=== PATIENT | female | born 1945 | race Caucasian/White ===

== ENCOUNTER 2016-05-20 14:49 | Inpatient (IN) | payer OTHER ==
[~2016-05-20] VITALS: Ht 154.9 cm; Wt 83.7 kg
[~2016-05-20 14:49] MED LIST: ADVAIR 500/501 DISK IH; AMITRIPTYLINE H25 MG PO; BENTYL20 MG PO; COLACE100 MG PO; COLESTID1 GM PO; COMBIVENT RESPIM4 GM IH; FLEXERIL10 MG PO; HUMIRA40 MG/0.1 SC; KENALOG,ARISTOC15 G1 TP; LEXAPRO20 MG PO; LIPITOR10 MG PO; MIRALAX17 GM PO; NEXIUM40 MG PO; NORVASC5 MG PO; SINGULAIR10 MG PO; TYLENOL EXTRA500 MG PO; VITAMIN D PO
[2016-05-20 16:01] VITALS: BP 125/94
[2016-05-20 16:04] LABS: HEMATOCRIT 41.1 % (36.0-46.0); MCH 30.8 PG (29.0-34.0); MCHC 32.4 G/DL (30.0-36.0); MCV 95.1 FL (83-99); MEAN PLAT.VOLUME 11.3 uM^3 (9.5-12.4); PLATELET COUNT 242 K/uL (156-360); RBC DIS.WIDTH-CV 13.5 % (11.8-14.6); RBC DIS.WIDTH-SD 45.1 % (39-53); RED BLOOD COUNT 4.32 M/uL (3.80-5.20)
[2016-05-20 16:11] LABS: WHITE BLOOD COUNT 16.6 K/uL (4.1-10.2)
[2016-05-20 16:21] LABS: CHLORIDE 97 mEq/L (99-109); POTASSIUM 4.5 mEq/L (3.7-5.4); SODIUM 137 mEq/L (136-147)
[2016-05-20 16:23] LABS: GLUCOSE 143 mg/dL (70-99)
[2016-05-20 16:24] LABS: ANION GAP 16 MEQ/L (2-14)
[2016-05-20 16:26] LABS: ALKALINE PHOSPHATASE 246 IU/L (3-129)
[2016-05-20 16:27] LABS: GFR ESTIMATE (CALCULATED) > 59 mL/min/
[2016-05-20 16:28] LABS: UREA NITROGEN (BUN) 8 mg/dL (9-23)
[2016-05-20 16:30] LABS: LIPASE 8 U/L (1.0-51.0)
[2016-05-20 16:31] VITALS: BP 182/112
[2016-05-20] MEDS ORDERED: BUPROPION HCL150 M2 PO (18:42)
[2016-05-20] MEDS ORDERED: VITAMIN D2000 UNI1 PO (18:44)
[2016-05-20] MEDS ORDERED: FOSAMAX70 MG PO (18:46)
[2016-05-21 01:44] VITALS: BP 165/78
[2016-05-21 03:50] VITALS: BP 164/75
[2016-05-21 07:25] LABS: ANION GAP 8 MEQ/L (2-14); CHLORIDE 100 MEQ/L (99-109); GFR ESTIMATE (CALCULATED) > 59 mL/min/; GLUCOSE 119 mg/dL (70-99); SAMPLE HEMOLYSIS CHECK 0; SAMPLE ICTERIC CHECK 0; SAMPLE LIPEMIA CHECK 0; SODIUM 137 MEQ/L (136-147); UREA NITROGEN (BUN) 6 mg/dL (9-23)
[2016-05-21 07:27] LABS: POTASSIUM 3.4 MEQ/L (3.7-5.4)
[2016-05-21 07:30] LABS: EOSINOPHIL (%) 0.2 % (0-5); HEMATOCRIT 35.6 % (36.0-46.0); IMMATURE GRANULOCYTE (%) 0.2 % (0.0-0.7); LYMPHOCYTE COUNT 1.6 K/uL (1.0-2.8); MCH 31.6 PG (29.0-34.0); MCHC 32.9 G/DL (30.0-36.0); MCV 96.2 FL (83-99); MEAN PLAT.VOLUME 11.8 uM^3 (9.5-12.4); MONOCYTE (%) 9.1 % (3-12); NEUTROPHIL (%) 74.7 % (45-76); NEUTROPHIL COUNT 7.8 K/uL (1.8-6.4); PLATELET COUNT 195 K/uL (156-360); RBC DIS.WIDTH-CV 14.2 % (11.8-14.6); RBC DIS.WIDTH-SD 49.4 % (39-53)
[2016-05-21 07:34] LABS: WHITE BLOOD COUNT 10.4 K/uL (4.1-10.2)
[2016-05-21 07:35] VITALS: BP 122/59
[2016-05-21 12:10] VITALS: BP 120/60
== END 2016-05-21 15:42 | disposition short-term general hospital (02) | DRG 389 ==
LOC: EME 14:49 → EDOF 23:54 → 2EAST 23:54
PROVIDERS: Hospitalist
DX: K56.5 Intestinal adhesions [bands] with obstruction (postinfection) (principal); K50.90 Crohn's disease, unspecified, without complications; J44.9 Chronic obstructive pulmonary disease, unspecified; E66.01 Morbid (severe) obesity due to excess calories; I10 Essential (primary) hypertension; E78.5 Hyperlipidemia, unspecified; F41.9 Anxiety disorder, unspecified; F32.9 Major depressive disorder, single episode, unspecified; Z86.2 Personal history of diseases of the blood and blood-forming organs and certain disorders involving the immune mechanism; Z79.899 Other long term (current) drug therapy; Z90.49 Acquired absence of other specified parts of digestive tract; K43.9 Ventral hernia without obstruction or gangrene; J45.909 Unspecified asthma, uncomplicated; K21.9 Gastro-esophageal reflux disease without esophagitis; M81.0 Age-related osteoporosis without current pathological fracture; Z68.34 Body mass index [BMI] 34.0-34.9, adult
CPT/HCPCS: 74020; 74177; 80048; 80053; 81003; 83605; 83690; 85025; 85027; 99281; 99285; C9113; J1170; J1644; J2270; J2405; J2920; J3010; J7030

== ENCOUNTER 2016-12-14 19:06 | Inpatient (IN) | payer OTHER ==
[~2016-12-14] VITALS: Ht 154.9 cm; Wt 79.5 kg
[~2016-12-14 19:06] MED LIST changes: +BUPROPION HCL150 M2 PO; +FOSAMAX70 MG PO; +VITAMIN D2000 UNI1 PO
[2016-12-14 20:00] LABS: EOSINOPHIL (%) 0.1 % (0-5); HEMATOCRIT 39.7 % (36.0-46.0); IMMATURE GRANULOCYTE (%) 0.4 % (0.0-0.7); IMMATURE GRANULOCYTE COUNT 0.1 K/uL; INSTRUMENT ABS NEUTROPHIL CT 10.3 K/uL; LYMPHOCYTE COUNT 1.5 K/uL (1.0-2.8); MCH 31.1 PG (29.0-34.0); MCHC 32.7 G/DL (30.0-36.0); MEAN PLAT.VOLUME 11.7 uM^3 (9.5-12.4); MONOCYTE (%) 7.2 % (3-12); MONOCYTE COUNT 0.9 K/uL (0-0.8); NEUTROPHIL (%) 80.2 % (45-76); NEUTROPHIL COUNT 10.3 K/uL (1.8-6.4); PLATELET COUNT 191 K/uL (156-360); RBC DIS.WIDTH-CV 12.8 % (11.8-14.6); RBC DIS.WIDTH-SD 44.4 % (39-53); RED BLOOD COUNT 4.18 M/uL (3.80-5.20); WHITE BLOOD COUNT 12.8 K/uL (4.1-10.2)
[2016-12-14 20:06] LABS: CHLORIDE 95 mEq/L (99-109); POTASSIUM 3.6 mEq/L (3.7-5.4); SODIUM 132 mEq/L (136-147)
[2016-12-14 20:08] LABS: GLUCOSE 108 mg/dL (70-99)
[2016-12-14 20:10] LABS: ANION GAP 10 MEQ/L (2-14); TOTAL BILIRUBIN 1.2 mg/dL (0.0-1.0)
[2016-12-14 20:12] LABS: ALKALINE PHOSPHATASE 312 IU/L (3-129); GFR ESTIMATE (CALCULATED) > 59 mL/min/
[2016-12-14 20:13] LABS: UREA NITROGEN (BUN) 5 mg/dL (9-23)
[2016-12-14 20:15] LABS: LIPASE 6 U/L (1.0-51.0)
[2016-12-14] MEDS ORDERED: NEXIUM40 MG PO (21:28)
[2016-12-14] MEDS ORDERED: PREDNISONE5 MG PO (21:29)
[2016-12-15 00:42] VITALS: BP 126/60
[2016-12-15 03:44] LABS: ADD MIUA? YES; BILIRUBIN NEGATIVE; BLOOD SMALL; COLOR YELLOW ((YELLOW)); GLUCOSE (STRIP) NEGATIVE; KETONES NEGATIVE; LEUKOCYTES NEGATIVE; NITRITE NEGATIVE; PROTEIN (STRIP) NEGATIVE
[2016-12-15 03:45] LABS: BACTERIA NONE SEEN /HPF; EPITHELIAL CELLS RARE /HPF; MUCUS NONE SEEN /LPF; RED BLOOD CELLS 0-5 /HPF (0-5); UCUL ADDED? NO; WHITE BLOOD CELLS 0-5 /HPF (0-5)
[2016-12-15 04:03] LABS: SPECIFIC GRAVITY 1.071 (1.000-1.030)
[2016-12-15 04:22] VITALS: BP 114/57
[2016-12-15 07:25] VITALS: BP 108/66
[2016-12-15 09:43] LABS: ANION GAP 8 MEQ/L (2-14); CHLORIDE 100 MEQ/L (99-109); GFR ESTIMATE (CALCULATED) > 59 mL/min/; POTASSIUM 3.8 MEQ/L (3.7-5.4); SAMPLE HEMOLYSIS CHECK 0; SAMPLE ICTERIC CHECK 0; SAMPLE LIPEMIA CHECK 0; SODIUM 138 MEQ/L (136-147); UREA NITROGEN (BUN) 5 mg/dL (9-23)
[2016-12-15 09:52] LABS: GLUCOSE 168 mg/dL (70-99)
[2016-12-15 10:16] LABS: HEMATOCRIT 34.8 % (36.0-46.0); MCH 30.9 PG (29.0-34.0); MCHC 31.3 G/DL (30.0-36.0); MCV 98.6 FL (83-99); RBC DIS.WIDTH-SD 46.5 % (39-53); RED BLOOD COUNT 3.53 M/uL (3.80-5.20); WHITE BLOOD COUNT 6.1 K/uL (4.1-10.2)
[2016-12-15 10:46] LABS: MEAN PLAT.VOLUME 12.4 uM^3 (9.5-12.4); PLAT.SUFFICIENCY DECREASED
[2016-12-15 10:48] LABS: PLATELET COUNT 130 K/uL (156-360)
[2016-12-15 11:26] VITALS: BP 91/46
[2016-12-15 15:26] VITALS: BP 114/69
[2016-12-15 19:36] VITALS: BP 115/62
[2016-12-16 00:20] VITALS: BP 131/67
[2016-12-16 04:35] VITALS: BP 113/89
[2016-12-16 06:09] LABS: EOSINOPHIL (%) 0 % (0-5); HEMATOCRIT 30.5 % (36.0-46.0); IMMATURE GRANULOCYTE (%) 0.6 % (0.0-0.7); INSTRUMENT ABS NEUTROPHIL CT 4.3 K/uL; LYMPHOCYTE COUNT 0.4 K/uL (1.0-2.8); MCH 32.3 PG (29.0-34.0); MCHC 32.8 G/DL (30.0-36.0); MCV 98.4 FL (83-99); MEAN PLAT.VOLUME 12.6 uM^3 (9.5-12.4); MONOCYTE (%) 2.5 % (3-12); MONOCYTE COUNT 0.1 K/uL (0-0.8); NEUTROPHIL (%) 87.9 % (45-76); NEUTROPHIL COUNT 4.3 K/uL (1.8-6.4); PLATELET COUNT 110 K/uL (156-360); RBC DIS.WIDTH-CV 12.9 % (11.8-14.6); RBC DIS.WIDTH-SD 46.5 % (39-53); WHITE BLOOD COUNT 4.9 K/uL (4.1-10.2)
[2016-12-16 06:34] LABS: ALKALINE PHOSPHATASE 173 IU/L (3-129); ANION GAP 8 MEQ/L (2-14); CHLORIDE 103 MEQ/L (99-109); GFR ESTIMATE (CALCULATED) > 59 mL/min/; GLUCOSE 148 mg/dL (70-99); POTASSIUM 3.4 MEQ/L (3.7-5.4); SAMPLE HEMOLYSIS CHECK 0; SAMPLE ICTERIC CHECK 0; SAMPLE LIPEMIA CHECK 0; SODIUM 139 MEQ/L (136-147); TOTAL BILIRUBIN 0.6 MG/DL (0.0-1.0); UREA NITROGEN (BUN) 4 mg/dL (9-23)
[2016-12-16 06:50] VITALS: BP 124/64
[2016-12-16 15:23] VITALS: BP 165/77
[2016-12-16 15:30] VITALS: BP 120/58
[2016-12-16 23:15] VITALS: BP 134/65
[2016-12-17 06:12] LABS: ANION GAP 6 MEQ/L (2-14); CHLORIDE 104 MEQ/L (99-109); GFR ESTIMATE (CALCULATED) > 59 mL/min/; GLUCOSE 162 mg/dL (70-99); POTASSIUM 3.7 MEQ/L (3.7-5.4); SAMPLE HEMOLYSIS CHECK 0; SAMPLE ICTERIC CHECK 0; SAMPLE LIPEMIA CHECK 0; SODIUM 140 MEQ/L (136-147); UREA NITROGEN (BUN) 4 mg/dL (9-23)
[2016-12-17 07:00] VITALS: BP 125/92
[2016-12-17] MEDS ORDERED: FLAGYL500 MG PO (14:18)
[2016-12-17] MEDS ORDERED: CIPRO500 MG PO (14:18)
== END 2016-12-17 15:32 | disposition home or self-care (01) | DRG 386 ==
LOC: EME 19:06 → EDOF 23:08 → 2EAST 23:08 → ENRESERV 23:10 → 2EAST 12-15 00:26
PROVIDERS: Emergency Medicine; Hospitalist
DX: K50.912 Crohn's disease, unspecified, with intestinal obstruction (principal); K56.51 Intestinal adhesions [bands], with partial obstruction; J44.9 Chronic obstructive pulmonary disease, unspecified; I10 Essential (primary) hypertension; E78.5 Hyperlipidemia, unspecified; K21.9 Gastro-esophageal reflux disease without esophagitis; M06.9 Rheumatoid arthritis, unspecified; F32.9 Major depressive disorder, single episode, unspecified; F41.9 Anxiety disorder, unspecified; M81.0 Age-related osteoporosis without current pathological fracture; E66.9 Obesity, unspecified; Z68.33 Body mass index [BMI] 33.0-33.9, adult; Z90.49 Acquired absence of other specified parts of digestive tract; Z79.83 Long term (current) use of bisphosphonates; Z86.73 Personal history of transient ischemic attack (TIA), and cerebral infarction without residual deficits
CPT/HCPCS: 74000; 74177; 80048; 80053; 81003; 83690; 85025; 85027; 87177; 87329; 87493; 94640; 94640 76; 94799; 99202; 99281; 99285; J0744; J1170; J1644; J2270; J2405; J2920; J3480; J7030; S0028; S0030

== ENCOUNTER 2017-06-24 07:59 | Inpatient (IN) | payer OTHER ==
[~2017-06-24] VITALS: Ht 157.5 cm; Wt 77.3 kg
[~2017-06-24 07:59] MED LIST changes: +CIPRO500 MG PO; +FLAGYL500 MG PO; +PREDNISONE5 MG PO
[2017-06-24 08:52] LABS: BASOPHIL (%) 0.1 % (0-1); EOSINOPHIL (%) 0.1 % (0-5); HEMATOCRIT 38.2 % (36.0-46.0); HEMOGLOBIN 12.8 G/DL (11.9-15.5); IMMATURE GRANULOCYTE (%) 0.2 % (0.0-0.7); LYMPHOCYTE (%) 13.7 % (15-42); LYMPHOCYTE COUNT 1.2 K/uL (1.0-2.8); MCH 32.1 PG (29.0-34.0); MCHC 33.5 G/DL (30.0-36.0); MCV 95.7 FL (83-99); MONOCYTE (%) 7.3 % (3-12); MONOCYTE COUNT 0.7 K/uL (0-0.8); NEUTROPHIL (%) 78.6 % (45-76); NEUTROPHIL COUNT 7.1 K/uL (1.8-6.4); PLATELET COUNT 173 K/uL (156-360); RBC DIS.WIDTH-CV 12.7 % (11.8-14.6); RED BLOOD COUNT 3.99 M/uL (3.80-5.20)
[2017-06-24 08:56] LABS: ALBUMIN 3.9 g/dL (3.2-4.8)
[2017-06-24 08:57] LABS: CHLORIDE 97 mEq/L (99-109); INTER. NORMALIZED RATIO 1.2; POTASSIUM 3.1 mEq/L (3.7-5.4); SODIUM 140 mEq/L (136-147)
[2017-06-24 08:59] LABS: GLUCOSE 138 mg/dL (70-99); TOTAL PROTEIN 7.4 g/dL (6.4-8.3)
[2017-06-24 09:01] LABS: TOTAL BILIRUBIN 0.9 mg/dL (0.0-1.0)
[2017-06-24 09:02] LABS: ALKALINE PHOSPHATASE 208 IU/L (3-129)
[2017-06-24 09:03] LABS: CREATININE 0.7 mg/dL (0.6-1.3); GFR ESTIMATE (CALCULATED) > 59 mL/min/
[2017-06-24 09:04] LABS: AST (GOT) 58 IU/L (2-34); UREA NITROGEN (BUN) 5 mg/dL (9-23)
[2017-06-24 09:06] LABS: ALT (GPT) 37 IU/L (3-49); LIPASE 8 U/L (1.0-51.0)
[2017-06-24 09:46] LABS: APPEARANCE CLEAR ((CLEAR)); BILIRUBIN NEGATIVE; BLOOD NEGATIVE; COLOR YELLOW ((YELLOW)); GLUCOSE (STRIP) NEGATIVE; KETONES NEGATIVE; LEUKOCYTES NEGATIVE; NITRITE NEGATIVE; PROTEIN (STRIP) NEGATIVE; SPECIFIC GRAVITY 1.019 (1.000-1.030)
[2017-06-24] MEDS ORDERED: TYLENOL ARTHRI650 MG PO (12:10)
[2017-06-24] MEDS ORDERED: VITAMIN E100 UNIT PO (12:18)
[2017-06-24 15:51] VITALS: BP 131/67
[2017-06-24 16:58] VITALS: BP 138/70
[2017-06-24 16:59] VITALS: BP 164/88
[2017-06-24 19:54] VITALS: BP 134/63
[2017-06-25 00:03] VITALS: BP 109/55
[2017-06-25 04:09] VITALS: BP 156/79
[2017-06-25 06:45] VITALS: BP 133/69
[2017-06-25 06:53] LABS: HEMATOCRIT 33.2 % (36.0-46.0); HEMOGLOBIN 10.7 G/DL (11.9-15.5); MCH 31.8 PG (29.0-34.0); MCHC 32.2 G/DL (30.0-36.0); MCV 98.5 FL (83-99); PLATELET COUNT 136 K/uL (156-360); RBC DIS.WIDTH-CV 13.2 % (11.8-14.6); RBC DIS.WIDTH-SD 47.6 % (39-53); RED BLOOD COUNT 3.37 M/uL (3.80-5.20); WHITE BLOOD COUNT 5.8 K/uL (4.1-10.2)
[2017-06-25 06:59] LABS: CHLORIDE 102 MEQ/L (99-109); CREATININE 0.5 MG/DL (0.6-1.3); GFR ESTIMATE (CALCULATED) > 59 mL/min/; GLUCOSE 112 mg/dL (70-99); POTASSIUM 3.2 MEQ/L (3.7-5.4); SODIUM 139 MEQ/L (136-147); UREA NITROGEN (BUN) 4 mg/dL (9-23)
[2017-06-25 15:00] VITALS: BP 160/70
[2017-06-25 19:21] VITALS: BP 138/71
[2017-06-26] VITALS (7 sets, daily range): BP systolic 121–161; BP diastolic 59–84
[2017-06-26 06:14] LABS: HEMATOCRIT 34.7 % (36.0-46.0); HEMOGLOBIN 11.2 G/DL (11.9-15.5); MCH 31.7 PG (29.0-34.0); MCHC 32.3 G/DL (30.0-36.0); MCV 98.3 FL (83-99); PLATELET COUNT 121 K/uL (156-360); RBC DIS.WIDTH-CV 13.1 % (11.8-14.6); RBC DIS.WIDTH-SD 46.9 % (39-53); RED BLOOD COUNT 3.53 M/uL (3.80-5.20); WHITE BLOOD COUNT 2.9 K/uL (4.1-10.2)
[2017-06-26 07:12] LABS: CHLORIDE 103 MEQ/L (99-109); CREATININE 0.4 MG/DL (0.6-1.3); GFR ESTIMATE (CALCULATED) > 59 mL/min/; MAGNESIUM 1.2 mg/dl (1.3-2.7); SODIUM 140 MEQ/L (136-147); UREA NITROGEN (BUN) 3 mg/dL (9-23)
[2017-06-26 07:17] LABS: GLUCOSE 175 mg/dL (70-99); POTASSIUM 4.6 MEQ/L (3.7-5.4)
[2017-06-27 06:14] LABS: HEMATOCRIT 34.4 % (36.0-46.0); MCH 31.5 PG (29.0-34.0); MCV 98.6 FL (83-99); PLATELET COUNT 131 K/uL (156-360); RBC DIS.WIDTH-CV 12.9 % (11.8-14.6); RBC DIS.WIDTH-SD 46.1 % (39-53); RED BLOOD COUNT 3.49 M/uL (3.80-5.20); WHITE BLOOD COUNT 3.5 K/uL (4.1-10.2)
[2017-06-27 06:40] LABS: CHLORIDE 108 MEQ/L (99-109); CREATININE 0.3 MG/DL (0.6-1.3); GFR ESTIMATE (CALCULATED) > 59 mL/min/; GLUCOSE 183 mg/dL (70-99); POTASSIUM 3.7 MEQ/L (3.7-5.4); SODIUM 142 MEQ/L (136-147); UREA NITROGEN (BUN) 2 mg/dL (9-23)
[2017-06-27 07:30] VITALS: BP 141/74
[2017-06-27 15:42] VITALS: BP 124/98
[2017-06-28 00:42] VITALS: BP 157/65; BP 162/90
[2017-06-28 06:20] LABS: HEMATOCRIT 34.2 % (36.0-46.0); MCH 31.6 PG (29.0-34.0); MCHC 32.2 G/DL (30.0-36.0); MCV 98.3 FL (83-99); PLATELET COUNT 135 K/uL (156-360); RBC DIS.WIDTH-CV 13.2 % (11.8-14.6); RBC DIS.WIDTH-SD 46.9 % (39-53); RED BLOOD COUNT 3.48 M/uL (3.80-5.20); WHITE BLOOD COUNT 3.7 K/uL (4.1-10.2)
[2017-06-28 06:36] LABS: CHLORIDE 107 MEQ/L (99-109); CREATININE 0.3 MG/DL (0.6-1.3); GFR ESTIMATE (CALCULATED) > 59 mL/min/; GLUCOSE 174 mg/dL (70-99); POTASSIUM 3.5 MEQ/L (3.7-5.4); SODIUM 142 MEQ/L (136-147); UREA NITROGEN (BUN) 3 mg/dL (9-23)
[2017-06-28 08:38] VITALS: BP 158/73
[2017-06-28] MEDS ORDERED: PREDNISONE10 MG PO (09:20)
== END 2017-06-28 11:24 | disposition home or self-care (01) | DRG 389 ==
LOC: EME 07:59 → EDOF 12:27 → 5EAST 12:27 → ENRESERV 12:28 → 5EAST 16:40
PROVIDERS: Emergency Medicine; Internal Medicine; Physician Assistant
DX: K56.600 Partial intestinal obstruction, unspecified as to cause (principal); K50.012 Crohn's disease of small intestine with intestinal obstruction; E87.6 Hypokalemia; D46.9 Myelodysplastic syndrome, unspecified; E83.42 Hypomagnesemia; I10 Essential (primary) hypertension; E78.5 Hyperlipidemia, unspecified; K21.9 Gastro-esophageal reflux disease without esophagitis; M81.0 Age-related osteoporosis without current pathological fracture; Z86.73 Personal history of transient ischemic attack (TIA), and cerebral infarction without residual deficits; Z90.49 Acquired absence of other specified parts of digestive tract; Z90.710 Acquired absence of both cervix and uterus
CPT/HCPCS: 74018; 74019; 74021; 74177; 80048; 80053; 81003; 83690; 83735; 85025; 85027; 85610; 94640; 94640 76; 99202; 99281; 99284; J0135; J1650; J2405; J2920; J3010; J3475; J3480; J7030; J7512

== ENCOUNTER 2017-09-18 08:29 | Emergency (ER) | payer OTHER ==
[~2017-09-18] VITALS: Ht 154.9 cm; Wt 76.9 kg
[~2017-09-18 08:29] MED LIST changes: +PREDNISONE10 MG PO; +TYLENOL ARTHRI650 MG PO; +VITAMIN E100 UNIT PO
[2017-09-18] MEDS ORDERED: NORCO 5/3251 TABLET PO (09:55)
[2017-09-18 10:50] VITALS: BP 143/81
== END 2017-09-18 10:55 | disposition home or self-care (01) ==
LOC: EME 08:29
DX: S42.215A Unspecified nondisplaced fracture of surgical neck of left humerus, initial encounter for closed fracture (principal); W01.0XXA Fall on same level from slipping, tripping and stumbling without subsequent striking against object, initial encounter; E78.5 Hyperlipidemia, unspecified; F32.9 Major depressive disorder, single episode, unspecified; F41.9 Anxiety disorder, unspecified; I10 Essential (primary) hypertension; J43.9 Emphysema, unspecified; K21.9 Gastro-esophageal reflux disease without esophagitis; K50.90 Crohn's disease, unspecified, without complications; Z88.1 Allergy status to other antibiotic agents; Z88.5 Allergy status to narcotic agent; Z88.6 Allergy status to analgesic agent
CPT/HCPCS: 73030; 73060; 73080; 99281; 99284

== ENCOUNTER 2017-10-04 16:57 | Observation (INO) | payer OTHER ==
[~2017-10-04] VITALS: Ht 154.9 cm; Wt 75.0 kg
[~2017-10-04 16:57] MED LIST changes: +NORCO 5/3251 TABLET PO
[2017-10-04 17:52] LABS: BASOPHIL (%) 0.2 % (0-1); EOSINOPHIL (%) 0.1 % (0-5); HEMATOCRIT 35.8 % (36.0-46.0); HEMOGLOBIN 12.1 G/DL (11.9-15.5); IMMATURE GRANULOCYTE (%) 0.4 % (0.0-0.7); LYMPHOCYTE (%) 26.6 % (15-42); LYMPHOCYTE COUNT 2.3 K/uL (1.0-2.8); MCH 30.6 PG (29.0-34.0); MCHC 33.8 G/DL (30.0-36.0); MCV 90.6 FL (83-99); MONOCYTE (%) 8.7 % (3-12); MONOCYTE COUNT 0.7 K/uL (0-0.8); NEUTROPHIL COUNT 5.5 K/uL (1.8-6.4); PLATELET COUNT 288 K/uL (156-360); RBC DIS.WIDTH-CV 13.3 % (11.8-14.6); RBC DIS.WIDTH-SD 43.9 % (39-53); RED BLOOD COUNT 3.95 M/uL (3.80-5.20); WHITE BLOOD COUNT 8.5 K/uL (4.1-10.2)
[2017-10-04 18:06] LABS: CHLORIDE 94 mEq/L (99-109); POTASSIUM 3.3 mEq/L (3.7-5.4); SODIUM 129 mEq/L (136-147)
[2017-10-04 18:07] LABS: GLUCOSE 105 mg/dL (70-99)
[2017-10-04 18:11] LABS: CREATININE 0.6 mg/dL (0.6-1.3); GFR ESTIMATE (CALCULATED) > 59 mL/min/
[2017-10-04 18:12] LABS: UREA NITROGEN (BUN) 6 mg/dL (9-23)
[2017-10-04 19:53] VITALS: BP 151/73
[2017-10-04 21:04] LABS: APPEARANCE CLEAR ((CLEAR)); BILIRUBIN NEGATIVE; BLOOD NEGATIVE; COLOR YELLOW ((YELLOW)); GLUCOSE (STRIP) NEGATIVE; KETONES 5; LEUKOCYTES NEGATIVE; NITRITE NEGATIVE; PROTEIN (STRIP) NEGATIVE; SPECIFIC GRAVITY 1.006 (1.000-1.030); UCUL ADDED? NO; UROBILINOGEN 0.2 MG/DL (0.2-1.0)
[2017-10-05] VITALS (8 sets, daily range): BP systolic 123–155; BP diastolic 60–86
[2017-10-05 06:01] LABS: ALBUMIN 2.8 G/DL (3.2-4.8); ALKALINE PHOSPHATASE 165 IU/L (3-129); ALT (GPT) 18 IU/L (3-49); AST (GOT) 23 IU/L (2-34); CHLORIDE 104 MEQ/L (99-109); CREATININE 0.4 MG/DL (0.6-1.3); GFR ESTIMATE (CALCULATED) > 59 mL/min/; GLUCOSE 89 mg/dL (70-99); POTASSIUM 3.8 MEQ/L (3.7-5.4); SODIUM 135 MEQ/L (136-147); TOTAL BILIRUBIN 0.5 MG/DL (0.0-1.0); TOTAL PROTEIN 5.5 G/DL (6.4-8.3); UREA NITROGEN (BUN) 4 mg/dL (9-23)
[2017-10-05 06:07] LABS: HEMATOCRIT 33.7 % (36.0-46.0); MCH 30.5 PG (29.0-34.0); MCHC 32.6 G/DL (30.0-36.0); MCV 93.4 FL (83-99); RBC DIS.WIDTH-CV 13.5 % (11.8-14.6); RBC DIS.WIDTH-SD 45.8 % (39-53); RED BLOOD COUNT 3.61 M/uL (3.80-5.20); WHITE BLOOD COUNT 5.3 K/uL (4.1-10.2)
[2017-10-05 06:15] LABS: PLAT.SUFFICIENCY ADEQUATE
[2017-10-05 06:21] LABS: PLATELET COUNT 186 K/uL (156-360)
[2017-10-06] VITALS: BP 177/81
[2017-10-06 03:55] VITALS: BP 153/84
[2017-10-06 07:56] VITALS: BP 117/96
[2017-10-06 12:00] VITALS: BP 121/87
[2017-10-06] MEDS ORDERED: BUPROPION HCL150 M2 PO (15:47)
[2017-10-06] MEDS ORDERED: ANTIVERT25 MG PO (15:48)
[2017-10-06] MEDS ORDERED: DRONABINOL2.5 MG PO ×2 (15:50→16:29)
[2017-10-06 16:33] VITALS: BP 157/81
[2017-10-06] MEDS ORDERED: VIVA PATCH1 EACH TP (17:03)
== END 2017-10-06 17:59 | disposition home or self-care (01) ==
LOC: EME 16:57 → 4SOUTH 18:51 → EDOF 18:51 → ENRESERV 18:53 → 4SOUTH 19:26
PROVIDERS: Emergency Medicine; Internal Medicine; Psychiatry & Neurology Neurology
DX: E87.1 Hypo-osmolality and hyponatremia (principal); E87.6 Hypokalemia; R53.1 Weakness; R42 Dizziness and giddiness; K50.90 Crohn's disease, unspecified, without complications; F41.8 Other specified anxiety disorders; R29.6 Repeated falls; I65.23 Occlusion and stenosis of bilateral carotid arteries; J44.9 Chronic obstructive pulmonary disease, unspecified; E78.5 Hyperlipidemia, unspecified; I10 Essential (primary) hypertension; K21.9 Gastro-esophageal reflux disease without esophagitis; S42.302D Unspecified fracture of shaft of humerus, left arm, subsequent encounter for fracture with routine healing; M81.0 Age-related osteoporosis without current pathological fracture; E66.9 Obesity, unspecified; Z79.52 Long term (current) use of systemic steroids
CPT/HCPCS: 70450; 70551; 73060; 74018; 80048; 80053; 81003; 82550; 84439; 85025; 85027; 85651; 93005; 93880; 94640; 94799; 99281; 99285; G0378; G8978 GP CJ; G8979 GP CI; G8980 GP CI; J1200; J1644; J7030; J7512; Q0167